=== PATIENT | male | born 2000 | race African-American/Black ===

== ENCOUNTER 2020-05-02 03:29 | Inpatient (IN) | payer SELFPAY ==
[2020-05-02 03:50] LABS: #Basophils 0.1 thou/uL (0.0-0.2); #Lymphocytes 2.9 thou/uL (1.20-3.40); #Monocytes 0.7 thou/uL (0.11-0.59); #Neutrophils 5.7 thou/uL (1.40-6.50); %Basophils 0.8 % (0.0-1.0); %Eosinophils 0.5 % (0.0-10.0); %Lymphocytes 30.6 % (28.0-48.0); %Monocytes 7.5 % (0.0-4.0); %Neutrophils 60.7 % (31.0-61.0); Mean Corpuscular HGB CONC 32.4 g/dL (32.0-36.0); Mean Corpuscular Hemoglobin 30.7 pg (25.0-35.0); Mean Corpuscular Volume 94.5 fL (78.0-98.0); Mean Platelet Volume 8.4 fL (7.4-10.4); Platelet Count 186 thou/uL (130-400); RBC Distribution Width 12.5 % (11.5-14.5); White Blood Cell (WBC) Count 9.4 thou/uL (4.8-10.8)
[2020-05-02 03:59] LABS: Actual Bicarbonate (HCO3a) 18.9 mEq/L (22-28); Analyzer IN Cardio ER; Base Excess (BEa) -4.5 mEq/L (-2.0 to +3.0); CO2 Tension 30.9 mmHg (35.0-45.0); Calcium, Ionized (arterial) 1.13 mmol/L (1.12-1.30); Carboxyhemoglobin (COHb) 0.2 gm% (0.0-3.0); O2 Tension (PaO2), arterial 367.8 mmHg (80.0-100.0); Potassium - ABG Lab 3.12 mmol/L (3.70-5.30); pH, Arterial 7.41 (7.35-7.45)
[2020-05-02 04:12] LABS: ALT (SGPT) 11 U/L (8-55); AST (SGOT) 17 U/L (5-34); Albumin 4.2 g/dL (3.5-5.0); Alcohol 325 mg/dL (Less than 10); Alkaline Phosphatase 126 U/L (50-130); Anion Gap 17 mmol/L (10-20); BUN (Urea Nitrogen) 11 mg/dL (8.9-20.6); Bilirubin, Total 3.2 mg/dL (0.2-1.2); CK (CPK) 247 U/L (30-200); Calc. Creatinine Clearance 0 mL/min (70-130); Calcium 8.2 mg/dL (7.8-10.44); Carbon Dioxide 19 mmol/L (22-29); Chloride 105 mmol/L (98-107); Globulin 2.8 g/dL (2.4-3.5); Glucose 134 mg/dL (70-105); Sodium 138 mmol/L (136-145)
[2020-05-02 04:36] LABS: ALV-art Gradient 21.375 mmHg (0-20); Puncture Site RBA
[2020-05-02] MEDS ORDERED: Ventilator Sedation Protocol 1 EACH FS SCH (04:45)
--- NOTE | 2020-05-02 04:52 | PDOC.HHP ---
Hospitalist HPI [facility] History of Present Illness: This is a 20-year-old male patient with no known past medical history who was brought in by EMS on account of altered mental status patient. Patient was intubated at the time of my assessment that history was taken from sign of and notes. He was noted of to have been binge drinking with his friends when he passed out and fell and hit his head. He has known to have had a seizure but this was not witnessed. EMS was activated and he was brought in for evaluation. On arrival he was generally unresponsive and GCS was as low as 3. BP was 116/76, pulse 72, respirate 14, saturating 100% on [id number]. Patient is GCS was still low there was concerns he cannot protect his airway because he was intubated for airway protection. His labs showed potassium of 3.0, CBC within normal limits. Alcohol was 325. ABG post intubation was pH of 7.41, CO2 30.9 and PO2 367. Adjustments were made to the ventilator. Brain CT showed no acute intracranial events. Chest x-ray was generally unremarkable Hospitalist team was consulted for admission Hospitalist HPI ROS ROS unobtainable: due to mental status Hospitalist Exam General - other findings: In bed, on ventilator support. Eye: anicteric sclera ENT: normocephalic atraumatic ENT - other findings: Bruise on left eyelid. Heart: RRR, no murmur, no gallops, no rubs Respiratory: CTAB, no wheezes, no rales, no ronchi Gastrointestinal: soft, non-tender, non-distended, normal bowel sounds Extremities: no cyanosis, no clubbing, no edema Skin: normal turgor Neurological - other findings: Patient not making any movements Psychiatric - other findings: Unable to assess. Hospitalist Results Result Diagrams: 05/02/20 03:33 05/02/20 03:33 Lab results: Laboratory Last Values WBC 9.4 thou/uL (4.8-10.8) 05/02/20 03:33 RBC 4.90 mill/uL (4.00-5.20) 05/02/20 03:33 Hgb 15.0 g/dL (14.0-18.0) 05/02/20 03:33 Hct 46.3 % (42.0-52.0) 05/02/20 03:33 MCV 94.5 fL (78.0-98.0) 05/02/20 03:33 MCH 30.7 pg (25.0-35.0) 05/02/20 03:33 MCHC 32.4 g/dL (32.0-36.0) 05/02/20 03:33 RDW 12.5 % (11.5-14.5) 05/02/20 03:33 Plt Count 186 thou/uL (130-400) 05/02/20 03:33 MPV 8.4 fL (7.4-10.4) 05/02/20 03:33 Neutrophils % 60.7 % (31.0-61.0) 05/02/20 03:33 Lymphocytes % 30.6 % (28.0-48.0) 05/02/20 03:33 Monocytes % 7.5 % (0.0-4.0) H 05/02/20 03:33 Eosinophils % 0.5 % (0.0-10.0) 05/02/20 03:33 Basophils % 0.8 % (0.0-1.0) 05/02/20 03:33 Neutrophils # 5.7 thou/uL (1.40-6.50) 05/02/20 03:33 Lymphocytes # 2.9 thou/uL (1.20-3.40) 05/02/20 03:33 Monocytes # 0.7 thou/uL (0.11-0.59) H 05/02/20 03:33 Eosinophils # 0.0 thou/uL (0.0-0.7) 05/02/20 03:33 Basophils # 0.1 thou/uL (0.0-0.2) 05/02/20 03:33 Specimen Type ARTERIAL 05/02/20 03:57 Puncture Site RBA 05/02/20 03:57 Bicarbonate Actual 18.9 mEq/L (22-28) L 05/02/20 03:57 ABG pH 7.41 (7.35-7.45) 05/02/20 03:57 ABG pCO2 30.9 mmHg (35.0-45.0) L 05/02/20 03:57 ABG pO2 367.8 mmHg (80.0-100.0) H 05/02/20 03:57 ABG O2 Sat (Measured) 99.5 % (94.0-98.0) H 05/02/20 03:57 ABG O2 Content 21.7 vol% (18.0-21.0) H 05/02/20 03:57 ABG Base Excess -4.5 mEq/L (-2.0 to +3.0) L 05/02/20 03:57 ABG Hematocrit 44.0 % (42.0-52.0) 05/02/20 03:57 ABG Hemoglobin 15.0 g/dL (11.4-15.4) 05/02/20 03:57 ABG Oxyhemoglobin 98.5 % (94.0-98.0) H 05/02/20 03:57 ABG Carboxyhemoglobin 0.2 gm% (0.0-3.0) 05/02/20 03:57 ABG Methemoglobin 0.80 gm% (0.04-1.52) 05/02/20 03:57 ABG Deoxyhemoglobin 0.5 % (0.0-2.9) 05/02/20 03:57 Juan Luis Test NOT DONE 05/02/20 03:57 A-a O2 Gradient 21.375 mmHg (0-20) H 05/02/20 03:57 Sodium 141 mmol/L (135-148) 05/02/20 03:57 Potassium 3.12 mmol/L (3.70-5.30) L 05/02/20 03:57 Chloride 106 mmol/L (98-106) 05/02/20 03:57 Ionized Calcium 1.13 mmol/L (1.12-1.30) 05/02/20 03:57 Mode of Support SIMV 05/02/20 03:57 Mechanical Rate 16 min 05/02/20 03:57 Inspired O2 60 % 05/02/20 03:57 Tidal Volume 500 ml 05/02/20 03:57 Pressure Support 10 cmH2O 05/02/20 03:57 PEEP or CPAP 5.0 cmH2O 05/02/20 03:57 Sodium 138 mmol/L (136-145) 05/02/20 03:33 Potassium 3.0 mmol/L (3.5-5.1) L 05/02/20 03:33 Chloride 105 mmol/L (98-107) 05/02/20 03:33 Carbon Dioxide 19 mmol/L (22-29) L 05/02/20 03:33 Anion Gap 17 mmol/L (10-20) 05/02/20 03:33 BUN 11 mg/dL (8.9-20.6) 05/02/20 03:33 Creatinine 0.99 mg/dL (0.7-1.3) 05/02/20 03:33 Estimated GFR (MDRD) Greater than 90 05/02/20 03:33 Glucose 134 mg/dL (70-105) H 05/02/20 03:33 Calcium 8.2 mg/dL (7.8-10.44) 05/02/20 03:33 Total Bilirubin 3.2 mg/dL (0.2-1.2) H 05/02/20 03:33 AST 17 U/L (5-34) 05/02/20 03:33 ALT 11 U/L (8-55) 05/02/20 03:33 Alkaline Phosphatase 126 U/L (50-130) 05/02/20 03:33 Creatine Kinase 247 U/L (30-200) H 05/02/20 03:33 Serum Total Protein 7.0 g/dL (6.0-8.3) 05/02/20 03:33 Albumin 4.2 g/dL (3.5-5.0) 05/02/20 03:33 Globulin 2.8 g/dL (2.4-3.5) 05/02/20 03:33 Albumin/Globulin Ratio 1.5 g/dL (1.2-2.2) 05/02/20 03:33 Plasma Alcohol 325 mg/dL (Less than 10) H 05/02/20 03:33 Hospitalist H&P A/P Plan: This is a 20-year-old male patient being admitted on account of severe alcohol intoxication and coma. Acute hypoxic respiratory Patient intubated for airway protection Pulmonology consult in a.m. Acute encephalopathy Secondary to alcohol intoxication Current supportive management Continue monitoring. Alcohol intoxication Alcohol level at 325 presentation Manage conservatively Withdrawal protocol if indicated. Hypokalemia Potassium 3.0 IV potassium ordered Check magnesium Continue monitoring. VT prophylaxisLovenox CODE STATUSto be discussed.
[2020-05-02 04:57] LABS: Bilirubin Negative (Negative); Blood, Urine Negative (Negative); Clarity Clear (Clear); Glucose, Urine (Dipstick) Normal (Negative); Ketone, Urine Negative (Negative); Leukocyte Negative Leu/uL (Negative); Nitrite Negative (Negative); Protein, Urine (Dipstick) Negative (Neg-Trace); Specific Gravity, Urine 1.006 (1.002-1.036); Urobilinogen Normal mg/dL (Less than 2)
[2020-05-02 05:10] LABS: Amphetamine Not Detected (NotDetected); Barbiturates Screen Not Detected (NotDetected); Benzodiazepine Screen Not Detected (NotDetected); Cocaine Metabolite Screen Not Detected (NotDetected); Medtox Control Line Valid? VALID (VALID); Medtox Reader # READER 4; Methadone Not Detected (NotDetected); Methamphetamine Not Detected (NotDetected); Opiate Screen Not Detected (NotDetected); Oxycodone Screen Not Detected (NotDetected); Phencyclidine (PCP) Not Detected (NotDetected); THC/Cannabinoid Screen Detected (NotDetected); Tricyclic Screen Not Detected (NotDetected)
[2020-05-02 05:46] LABS: SARS-CoV-2 NAA Rapid Test Not Detected (NotDetected)
[2020-05-02] MEDS ORDERED: Propofol 1,000 MG/100 ML VIAL IV ONE ×2 (06:55→07:12)
[2020-05-02] MEDS ORDERED: Fentanyl 100 MCG/2 ML VIAL ONE (06:55)
[2020-05-02] MEDS ORDERED: Propofol 1,000 MG/100 ML VIAL IV PRN (07:15)
[2020-05-02] MEDS ORDERED: Morphine 2 MG/ML VIAL SLOW IVP PRN (07:15)
[2020-05-02] MEDS ORDERED: Fentanyl BOLUS 250 ML IVPB PRN (07:15)
[2020-05-02] MEDS ORDERED: Propofol BOLUS 1,000 MG/100 ML VIAL IV PRN (07:15)
[2020-05-02] MEDS ORDERED: Lorazepam 2 MG/ML VIAL SLOW IVP PRN (07:15)
[2020-05-02] MEDS ORDERED: Fentanyl CADD 100 ML IV SCH (07:15)
[2020-05-02] MEDS ORDERED: DISCONTINUE PREVIOUS NARCOTIC PAIN MEDICATIONS AND BENZODIAZEPINES FS SCH (07:15)
[2020-05-02 07:29] VITALS: BMI 19.4
[2020-05-02] MEDS: Potassium Chloride 20 MEQ in Premix Bag 1 BAG IVPB SCH ×2 (07:49→10:44)
[2020-05-02] MEDS ORDERED: FLU VACC QS2020-21(6MOS UP)/PF 60 MCG/0.5 ML SYRINGE IM ONE (08:00)
--- NOTE | 2020-05-02 08:48 | CT ---
PRELIMINARY REPORT/[facility]/AFTER HOURS PROCEDURE CT HEAD WITHOUT INTRAVENOUS CONTRAST: CLINICAL HISTORY: A 20-year-old male found unresponsive, lying in the street. By-standers called 911. On arrival patien t covered in vomit, reeking of alcohol, unresponsive, with a GCS of 3. Secondary survey revealed no obvious evidence of the patient's depressed mental status except a strong odor of alcohol. TECHNIQUE: Axial computed tomography images of the head/brain without intravenous contrast. COMPARISON: None provided. FINDINGS: BRAIN: No acute intraparenchymal hemorrhage. No mass lesion. No CT evidence for acute territorial inf arct. No midline shift or extra-axial collection. VENTRICLES: No hydrocephalus. ORBITS: The orbits are unremarkable. SINUSES AND MASTOIDS: The paranasal sinuses and mastoid air cells are clear. SOFT TISSUES: No significant facial or scalp soft tissue swelling evident. No radiopaque foreign body is seen. BONES: No acute skull fracture. IMPRESSION: No acute intracranial abnormality. ELECTRONICALLY SIGNED BY: Juan Luis Villatoro MD May 02, 2020 4:39:30 AM [employer] This report is intended for review by the ordering physician only, in accordance of law. If you recei ve this report in error, please call [facility] at [phone]. FINAL REPORT EMERGENT AFTER HOURS NONCONTRAST CT HEAD: HISTORY: Altered mental status. Patient found unresponsive, lying in street. COMPARISON: None. IMPRESSION: 1. No acute intracranial abnormality demonstrated. 2. Findings are in agreement with preliminary report by [facility]. CODE QA Transcribed Date/Time: 05/02/2020 9:02 AM
--- NOTE | 2020-05-02 08:55 | RAD ---
EXAM: XR Chest 1 View Portable PROVIDED CLINICAL HISTORY: Respiratory insufficiency COMPARISON: None FINDINGS: Cardiac and mediastinal silhouette is within normal limits. Endotracheal tube is noted with tip overl alex expected location of the thoracic inlet. Enteric catheter is noted, tip of which overlies the left midabdomen. No focal consolidation is evident. The supine nature the study is not sensitive for detection of pleural fluid or pneumothorax, without such apparent. IMPRESSION: No evidence for an acute cardiopulmonary process.
[2020-05-02] MEDS ORDERED: Famotidine/PF 20 mg/2ml Vial SLOW IVP SCH (09:00)
[2020-05-02] MEDS ORDERED: Enoxaparin Sodium 40 MG/0.4 ML SYRINGE SC SCH (09:00)
[2020-05-02] MEDS ORDERED: Thiamine HCl 200 MG/2 ML VIAL SLOW IVP SCH (09:30)
[2020-05-02 10:12] VITALS: BP 117/50
[2020-05-02 11:04] VITALS: TEMP 97.6
--- NOTE | 2020-05-02 12:00 | PDOC.PULCC ---
CCU Progress Note: Subj/Obj - Subjective Date: 05/02/20 Time: 10:15 Subjective: CRITICAL CARE CONSULTATION REQUESTED FOR 20 YEAR OLD patient intubated and sedated, he is unable to provide history Narrative: 20 year old intubated in ED for altered sensorium due to overdose alcohol, - Objective Allergies/Adverse Reactions: Allergies Allergy/AdvReac Type Severity Reaction Status Date / Time No Allergy Information Allergy Unverified 05/02/20 07:09 Available Medications: Current Medications Enoxaparin Sodium (Enoxaparin Sodium 40 Mg/0.4 Ml Syringe) 40 mg SC 0900 [facility] Last Admin: 05/02/20 07:45 Dose: 40 mg Documented by: Famotidine (Famotidine/Pf 20 Mg/2ml Vial) 20 mg SLOW IVP Q12HR [facility] Last Admin: 05/02/20 07:45 Dose: 20 mg Documented by: Potassium Chloride 20 meq/ (Device) 100 mls @ 50 mls/hr IVPB Q2H [facility] Stop: 05/02/20 11:59 Last Admin: 05/02/20 10:44 Dose: 100 mls Documented by: Discontinue Previous Narcotic Pain Medications And Benzodiazepines 1 each FS .ONE [facility] Stop: 06/01/20 07:15 Sodium Chloride (Flush - Normal Saline 10 Ml Syringe) 10 ml IVF Q12HR [facility] Last Admin: 05/02/20 07:45 Dose: 10 ml Documented by: Thiamine HCl (Thiamine Hcl 200 Mg/2 Ml Vial) 100 mg SLOW IVP NOW [facility] Stop: 05/02/20 12:00 Last Admin: 05/02/20 10:23 Dose: 100 mg Documented by: SALLY Reviewed: Yes Vital Signs and I&O: Vital Signs Temp 97.6 F 05/02/20 11:00 Pulse 75 05/02/20 10:10 Resp 16 05/02/20 07:29 BP 117/50 L 05/02/20 10:10 Pulse Ox 100 05/02/20 07:29 Intake & Output 05/01/20 05/02/20 05/02/20 18:59 06:59 18:59 Output Total 445 Balance -445 Weight 143 lb 4.807 oz Output: Gastric Drainage 120 Output, Huang 325 Other: Voiding Method Indwelling Catheter Spontaneous Breathing Test: done (awake and alert on vent with sedation turned off Vt excellent on PS 5 follows all directions) CCU Progress Note: Exam - Physical Exam Constitutional: NAD HEENT: PERRLA, moist MMs Deviation from normal: oral ETT OGT, evidence of trauma over left eye smal cut/laceration Neck: no nodes Cardiovascular: RRR Respiratory: clear to auscultation anteriorly Gastrointestinal: soft, non-tender, no distention Musculoskeletal: no edema, pulses present Psychiatric: normal affect Skin: no rash, normal turgor, cap refill <2 seconds CCU Progress Note: Data - Labs Result Diagrams: 05/02/20 03:33 05/02/20 03:33 Lab results: Laboratory Results 05/02/20 05/02/20 05/02/20 03:30 03:33 03:33 WBC 9.4 RBC 4.90 Hgb 15.0 Hct 46.3 MCV 94.5 MCH 30.7 MCHC 32.4 RDW 12.5 Plt Count 186 MPV 8.4 Neutrophils % 60.7 Lymphocytes % 30.6 Monocytes % 7.5 H Eosinophils % 0.5 Basophils % 0.8 Neutrophils # 5.7 Lymphocytes # 2.9 Monocytes # 0.7 H Eosinophils # 0.0 Basophils # 0.1 Specimen Type Puncture Site Bicarbonate Actual ABG pH ABG pCO2 ABG pO2 ABG O2 Sat (Measured) ABG O2 Content ABG Base Excess ABG Hematocrit ABG Hemoglobin ABG Oxyhemoglobin ABG Carboxyhemoglobin ABG Methemoglobin ABG Deoxyhemoglobin Juan Luis Test A-a O2 Gradient Ionized Calcium Mode of Support Mechanical Rate Inspired O2 Tidal Volume Pressure Support PEEP or CPAP Sodium 138 Potassium 3.0 L Chloride 105 Carbon Dioxide 19 L Anion Gap 17 BUN 11 Creatinine 0.99 Estimated GFR (MDRD) Greater than 90 Glucose 134 H Calcium 8.2 Magnesium 2.1 Total Bilirubin 3.2 H AST 17 ALT 11 Alkaline Phosphatase 126 Creatine Kinase 247 H Serum Total Protein 7.0 Albumin 4.2 Globulin 2.8 Albumin/Globulin Ratio 1.5 Urine Color Urine Clarity Urine pH Ur Specific [place] Urine Protein Urine Glucose (UA) Urine Ketones Urine Blood Urine Nitrite Urine Bilirubin Urine Urobilinogen Ur Leukocyte Esterase Urine Opiates Screen Ur Oxycodone Screen Urine Methadone Screen Ur Propoxyphene Screen Ur Barbiturates Screen Ur Tricyclics Screen Ur Phencyclidine Scrn Ur Amphetamines Screen U Methamphetamines Scrn U Benzodiazepines Scrn U Cocaine Metab Screen U Cannabinoids Screen Drug Screen Comment Plasma Alcohol 325 H Influenza A RNA INAAT Influenza B RNA INAAT SARS-CoV-2 Rap RNA(RT-PCR) 05/02/20 05/02/20 05/02/20 03:50 03:50 03:57 WBC RBC Hgb Hct MCV MCH MCHC RDW Plt Count MPV Neutrophils % Lymphocytes % Monocytes % Eosinophils % Basophils % Neutrophils # Lymphocytes # Monocytes # Eosinophils # Basophils # Specimen Type ARTERIAL Puncture Site RBA Bicarbonate Actual 18.9 L ABG pH 7.41 ABG pCO2 30.9 L ABG pO2 367.8 H ABG O2 Sat (Measured) 99.5 H ABG O2 Content 21.7 H ABG Base Excess -4.5 L ABG Hematocrit 44.0 ABG Hemoglobin 15.0 ABG Oxyhemoglobin 98.5 H ABG Carboxyhemoglobin 0.2 ABG Methemoglobin 0.80 ABG Deoxyhemoglobin 0.5 Juan Luis Test NOT DONE A-a O2 Gradient 21.375 H Ionized Calcium 1.13 Mode of Support SIMV Mechanical Rate 16 Inspired O2 60 Tidal Volume 500 Pressure Support 10 PEEP or CPAP 5.0 Sodium 141 Potassium 3.12 L Chloride 106 Carbon Dioxide Anion Gap BUN Creatinine Estimated GFR (MDRD) Glucose Calcium Magnesium Total Bilirubin AST ALT Alkaline Phosphatase Creatine Kinase Serum Total Protein Albumin Globulin Albumin/Globulin Ratio Urine Color Colorless Urine Clarity Clear Urine pH 6.0 Ur Specific [place] 1.006 Urine Protein Negative Urine Glucose (UA) Normal Urine Ketones Negative Urine Blood Negative Urine Nitrite Negative Urine Bilirubin Negative Urine Urobilinogen Normal Ur Leukocyte Esterase Negative Urine Opiates Screen Not Detected Ur Oxycodone Screen Not Detected Urine Methadone Screen Not Detected Ur Propoxyphene Screen Not Detected Ur Barbiturates Screen Not Detected Ur Tricyclics Screen Not Detected Ur Phencyclidine Scrn Not Detected Ur Amphetamines Screen Not Detected U Methamphetamines Scrn Not Detected U Benzodiazepines Scrn Not Detected U Cocaine Metab Screen Not Detected U Cannabinoids Screen Detected H Drug Screen Comment Plasma Alcohol Influenza A RNA INAAT Influenza B RNA INAAT SARS-CoV-2 Rap RNA(RT-PCR) 05/02/20 04:09 WBC RBC Hgb Hct MCV MCH MCHC RDW Plt Count MPV Neutrophils % Lymphocytes % Monocytes % Eosinophils % Basophils % Neutrophils # Lymphocytes # Monocytes # Eosinophils # Basophils # Specimen Type Puncture Site Bicarbonate Actual ABG pH ABG pCO2 ABG pO2 ABG O2 Sat (Measured) ABG O2 Content ABG Base Excess ABG Hematocrit ABG Hemoglobin ABG Oxyhemoglobin ABG Carboxyhemoglobin ABG Methemoglobin ABG Deoxyhemoglobin Juan Luis Test A-a O2 Gradient Ionized Calcium Mode of Support Mechanical Rate Inspired O2 Tidal Volume Pressure Support PEEP or CPAP Sodium Potassium Chloride Carbon Dioxide Anion Gap BUN Creatinine Estimated GFR (MDRD) Glucose Calcium Magnesium Total Bilirubin AST ALT Alkaline Phosphatase Creatine Kinase Serum Total Protein Albumin Globulin Albumin/Globulin Ratio Urine Color Urine Clarity Urine pH Ur Specific [place] Urine Protein Urine Glucose (UA) Urine Ketones Urine Blood Urine Nitrite Urine Bilirubin Urine Urobilinogen Ur Leukocyte Esterase Urine Opiates Screen Ur Oxycodone Screen Urine Methadone Screen Ur Propoxyphene Screen Ur Barbiturates Screen Ur Tricyclics Screen Ur Phencyclidine Scrn Ur Amphetamines Screen U Methamphetamines Scrn U Benzodiazepines Scrn U Cocaine Metab Screen U Cannabinoids Screen Drug Screen Comment Plasma Alcohol Influenza A RNA INAAT Not Detected Influenza B RNA INAAT Not Detected SARS-CoV-2 Rap RNA(RT-PCR) Not Detected - ABG Interpretation ABG Results: ABG pH 7.41 (7.35-7.45) 05/02/20 03:57 ABG pCO2 30.9 mmHg (35.0-45.0) L 05/02/20 03:57 ABG Base Excess -4.5 mEq/L (-2.0 to +3.0) L 05/02/20 03:57 - EKG Data Rate: normal - Radiology Interpretation Chest x-ray Additional comments: clear with ETT and gastric tubes head ct neg CCU Progress Note: A/P - Problems (1) Acute respiratory failure Current Visit: Yes Status: Acute Code(s): J96.00 - ACUTE RESPIRATORY FAILURE, UNSP W HYPOXIA OR HYPERCAPNIA Assessment and Plan: met criteria for extubation (2) Alcohol poisoning Current Visit: Yes Status: Acute Code(s): T51.91XA - TOXIC EFFECT OF UNSP ALCOHOL, ACCIDENTAL, INIT Qualifiers: Qualified Code(s): T51.91XA - Toxic effect of unspecified alcohol, accidental (unintentional), initial encounter Assessment and Plan: counseling (3) Hyponatremia Current Visit: Yes Status: Acute Code(s): E87.1 - HYPO-OSMOLALITY AND HYPONATREMIA Assessment and Plan: recheck prn may have been acute to cause sz along with alcohol (4) Hypokalemia Current Visit: Yes Status: Acute Code(s): E87.6 - HYPOKALEMIA Assessment and Plan: replace iv or po. 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
[2020-05-02] MEDS ORDERED: Potassium Chloride 20 MEQ TAB PO SCH (12:30)
[2020-05-02] MEDS: Potassium Chloride 10 MEQ in Premix Bag 1 BAG IVPB SCH ×2 (12:33→12:44)
--- NOTE | 2020-05-02 14:47 | PDOC.HOSPP ---
- Subjective Encounter Date: 05/02/20 Encounter Time: 14:46 Subjective: . Juan Luis was seen today in follow-up of alcohol poisoning. He has been extubated. He does not have any complaints. He admits to drinking too much at a libertarian. He denies suicidal or homicidal ideation. - Objective Vital Signs & Weight: Vital Signs (12 hours) Temp Pulse Resp BP BP Pulse Ox 05/02/20 12:00 100 05/02/20 11:00 97.6 F 05/02/20 10:10 75 117/50 L 05/02/20 09:00 97.7 F 05/02/20 07:29 16 100 05/02/20 07:18 98.2 F 05/02/20 07:10 98.2 F 67 16 126/61 100 05/02/20 07:05 72 Weight Admit Weight 143 lb 4.807 oz Weight 143 lb 4.807 oz Most Recent Monitor Data Heart Rate from ECG 78 NIBP 114/57 NIBP BP-Mean 75 Respiration from ECG 13 SpO2 98 I&O: 05/01/20 05/02/20 05/03/20 06:59 06:59 06:59 Output Total 680 Balance -680 Result Diagrams: 05/02/20 03:33 05/02/20 03:33 Hospitalist ROS - Medication Medications: Active Medications Generic Name Dose Route Start Last Admin Trade Name Kevin PRN Reason Stop Dose Admin Enoxaparin Sodium 40 mg 05/02/20 09:00 05/02/20 07:45 Enoxaparin Sodium 40 Mg/0.4 Ml Syringe SC 40 mg 0900 [facility] Administration Famotidine 20 mg 05/02/20 09:00 05/02/20 07:45 Famotidine/Pf 20 Mg/2ml Vial SLOW IVP 20 mg Q12HR [facility] Administration Magnesium Sulfate 1 gm/ Sodium 102 mls @ 100 mls/hr 05/02/20 12:30 05/02/20 13:28 Chloride IVPB 05/02/20 15:30 102 mls NOW [facility]OTT Administration Sodium Chloride 10 ml 05/02/20 09:00 05/02/20 07:45 Flush - Normal Saline 10 Ml Syringe IVF 10 ml Q12HR [facility] Administration Hospitalist Exam Vitals: Vital Signs (12 hours) Temp Pulse Resp BP BP Pulse Ox 05/02/20 12:00 100 05/02/20 11:00 97.6 F 05/02/20 10:10 75 117/50 L 05/02/20 09:00 97.7 F 05/02/20 07:29 16 100 05/02/20 07:18 98.2 F 05/02/20 07:10 98.2 F 67 16 126/61 100 05/02/20 07:05 72 Weight Admit Weight 143 lb 4.807 oz Weight 143 lb 4.807 oz Most Recent Monitor Data Heart Rate from ECG 78 NIBP 114/57 NIBP BP-Mean 75 Respiration from ECG 13 SpO2 98 General Appearance: NAD Eye: PERRL, anicteric sclera Heart: RRR, no murmur, no gallops, no rubs, normal peripheral pulses Respiratory: CTAB, no wheezes, no rales, no ronchi, normal chest expansion, no tachypnea Gastrointestinal: soft, non-tender, non-distended, normal bowel sounds, no palpable masses, no hepatomegaly Extremities: no cyanosis, no edema Hosp A/P (1) Acute respiratory failure Code(s): J96.00 - ACUTE RESPIRATORY FAILURE, UNSP W HYPOXIA OR HYPERCAPNIA Status: Acute (2) Alcohol poisoning Code(s): T51.91XA - TOXIC EFFECT OF UNSP ALCOHOL, ACCIDENTAL, INIT Status: Acute Qualifiers: Qualified Code(s): T51.91XA - Toxic effect of unspecified alcohol, accidental (unintentional), initial encounter - Plan * Alcohol Poisoning- resolved. He is now extubated. He is clinically stable * Alcohol abuse was discussed. * Stable for discharge home.
--- NOTE | 2020-05-02 14:51 | PDOC.DS.DS ---
Provider Date of Admission: 05/02/20 04:40 Date of Discharge: 05/02/20 Admitting Provider: Catarino Fisher MD Consultations: Pulmonary Primary Care Physician: NO PCP PROVIDER Course Hospital Course: Mr. Mcknight is a 20 year old gentleman with no significant past medical history who was admitted to the hospital with acute respiratory failure due to alcohol poisoning. He was found unresponsive, and was intubated to protect his airway. He was able to be extubated rapidly the next day. He was completely back to baseline. I discussed with him the dangers of excessive alcohol use. He denied any suicidal or homicidal ideation. Since he was back to his baseline, he was able to be discharged home, and recommended to have close out patient follow-up. Lab Results: 05/02/20 03:33 05/02/20 03:33 Abnormal Lab Results - Last 48 hrs 05/02/20 03:33: Potassium 3.0 L, Carbon Dioxide 19 L, Total Bilirubin 3.2 H, Creatine Kinase 247 H, Plasma Alcohol 325 H 05/02/20 03:33: Monocytes % 7.5 H, Monocytes # 0.7 H 05/02/20 03:50: U Cannabinoids Screen Detected H 05/02/20 03:57: Bicarbonate Actual 18.9 L, ABG pCO2 30.9 L, ABG pO2 367.8 H, ABG O2 Sat (Measured) 99.5 H, ABG O2 Content 21.7 H, ABG Base Excess -4.5 L, ABG Oxyhemoglobin 98.5 H, A-a O2 Gradient 21.375 H, Potassium 3.12 L Vitals: Vital Signs (12 hours) Temp Pulse Resp BP BP Pulse Ox 05/02/20 12:00 100 05/02/20 11:00 97.6 F 05/02/20 10:10 75 117/50 L 05/02/20 09:00 97.7 F 05/02/20 07:29 16 100 05/02/20 07:18 98.2 F 05/02/20 07:10 98.2 F 67 16 126/61 100 05/02/20 07:05 72 Weight Admit Weight 143 lb 4.807 oz Weight 143 lb 4.807 oz Most Recent Monitor Data Heart Rate from ECG 78 NIBP 114/57 NIBP BP-Mean 75 Respiration from ECG 13 SpO2 98 Physical Exam: The patient was seen and examined on the day of discharge. Problem (1) Acute respiratory failure Code(s): J96.00 - ACUTE RESPIRATORY FAILURE, UNSP W HYPOXIA OR HYPERCAPNIA Status: Acute (2) Alcohol poisoning Code(s): T51.91XA - TOXIC EFFECT OF UNSP ALCOHOL, ACCIDENTAL, INIT Status: Acute Qualifiers: Qualified Code(s): T51.91XA - Toxic effect of unspecified alcohol, accidental (unintentional), initial encounter Plan Allergies: No Allergy Information Available Allergy (Unverified 05/02/20 07:09) Discharge Instructions:: Follow-up with a Primary Care Provider in 1-2 weeks Activity:: Activity as Tolerated Nourishment:: Regular Diet Referrals: PROVIDER,NO PCP [Primary Care Provider] - Disposition: HOME Quality CORE MEASURES:: N/A
== END 2020-05-02 15:10 | disposition home or self-care (01) | DRG 917 ==
LOC: ERS 03:29 → EDBD 03:29 → CCU 04:40
PROVIDERS: ADMIT Student in an Organized Health Care Education/Training Program; ATTEND Student in an Organized Health Care Education/Training Program
PROC: 0BH17EZ Insertion of Endotracheal Airway into Trachea, Via Natural or Artificial Opening (ICD-10-PCS; principal; 2020-05-02)
PROC: 5A1935Z Respiratory Ventilation, Less than 24 Consecutive Hours (ICD-10-PCS; 2020-05-02)
DX: T51.91XA Toxic effect of unspecified alcohol, accidental (unintentional), initial encounter (principal); J96.00 Acute respiratory failure, unspecified whether with hypoxia or hypercapnia; G92 Toxic encephalopathy; E87.1 Hypo-osmolality and hyponatremia; E87.2 Acidosis; F10.129 Alcohol abuse with intoxication, unspecified; E87.6 Hypokalemia; S09.90XA Unspecified injury of head, initial encounter; R56.9 Unspecified convulsions; Z20.822 Contact with and (suspected) exposure to COVID-19
CPT/HCPCS: 0240U; 31500; 36600; 51702; 70450; 71045; 80053; 80306; 80307; 81003; 82550; 82805; 83735; 85025; 93005; 94002; 94760; 96374; 99292; J1650; J2704; J3010; J3411; J3475; J3480; J3490; S0028